=== PATIENT | male | born 1975 | race Caucasian/White ===

== ENCOUNTER 2018-05-06 20:11 | Emergency (ER) | payer BC ==
[2018-05-06 20:57] VITALS: BP 154/88
--- NOTE | 2018-05-06 20:57 | UC ---
UC General HPI - HPI Summary HPI Summary: pt has noted some pain and swelling to his L great toe for 2 days that is worsening. he now has some mild redness and swelling to the top of his foot as well. he was "planking" prior to onset but denies any acute injury. he has noted some decrease in ROM to that toe for some time and wonders if this is related. no fever or other joint pains. denies hx gout. self tx with occasional ibuprofen. - History of Current Complaint Stated Complaint: LEFT FOOT CONCERN Time Seen by Provider: 05/06/18 20:42 Hx Obtained From: Patient Onset/Duration: Gradual Onset Timing: Constant Associated Signs & Symptoms: Positive: Edema. Negative: Fever - Allergy/Home Medications Allergies/Adverse Reactions: Allergies Allergy/AdvReac Type Severity Reaction Status Date / Time No Known Allergies Allergy Verified 05/06/18 20:54 PMH/Surg Hx/FS Hx/Imm Hx Previously Healthy: Yes - Surgical History Surgical History: Yes Surgery Procedure, Year, and Place: Parotidectomy 2004 [facility]. Dermal Graft to neck 2008 [facility]. Right tear duct [facility] 2015 - Family History Known Family History: Positive: Hypertension - father - Social History Occupation: Employed Full-time Alcohol Use: Daily Alcohol Amount: 2 daily Substance Use Type: None Smoking Status (MU): Former Smoker Have You Smoked in the Last Year: No When Did the Patient Quit Smoking/Using Tobacco: 2007 - Immunization History Most Recent Influenza Vaccination: no Review of Systems All Other Systems Reviewed And Are Negative: Yes Constitutional: Positive: Negative Skin: Positive: Rash - L foot Eyes: Positive: Negative ENT: Positive: Negative Respiratory: Positive: Negative Cardiovascular: Positive: Negative Gastrointestinal: Positive: Negative Genitourinary: Positive: Negative Motor: Positive: Negative Neurovascular: Positive: Negative Musculoskeletal: Positive: Arthralgia - L great toe, Edema - L great toe into dorsal foot. Neurological: Positive: Negative Psychological: Positive: Negative Physical Exam Triage Information Reviewed: Yes Appearance: Well-Appearing Vital Signs Reviewed: Yes Eyes: Positive: Conjunctiva Clear ENT: Positive: Normal ENT inspection Neck: Positive: Supple Respiratory: Positive: No respiratory distress Cardiovascular: Positive: RRR Abdomen Description: Positive: Nontender Bowel Sounds: Positive: Present Musculoskeletal: Positive: Other: - LLE: base of great toe into dorsal foot with erythema, warmth and mild swelling. Base of toe tender to touch. Foot has gross s/v/m function. Rest of LLE is unremarkable. Diagnostics - Radiology No standard instances Radiology Interpretation Completed By: Radiologist - L foot=mild deg changes base great toe Course/Dx - Course Course Of Treatment: BP elevated here. no hx htn. may be both pain and visit related. will have recheck on f/u. will avoid any additional NSAID use at this time do to pt BP. will cover for cellulitis and gout using keflex and prednisone. - Differential Dx - Multi-Symptom Differential Diagnoses: Other - ARTHRITIS, GOUT, CELLULITIS. NO CONCERN FOR SEPTIC JOINT. - Diagnoses Provider Diagnosis: Gout, Cellulitis of left foot Discharge - Sign-Out/Discharge Documenting (check all that apply): Patient Departure All imaging exams completed and their final reports reviewed: No - Discharge Plan Condition: Stable Disposition: HOME Prescriptions: Cephalexin CAP* [Keflex CAP*] 500 mg PO TID 10 Days #30 cap predniSONE [Prednisone 20 MG TAB] 40 mg PO DAILY 3 Days #6 tablet Patient Education Materials: Cellulitis (ED), Gout (ED) Referrals: Steven Miguel MD [Primary Care Provider] - 3 Days Additional Instructions: STOP ALL MOTRIN/ALEVE/IBUPROFEN USE DUE TO ELEVATED BLOOD PRESSURE. FOLLOW UP WITH PRIMARY CARE IN 3 DAYS OR SOONER IF WORSE. - Billing Disposition and Condition Condition: STABLE Disposition: Home
[2018-05-06] MEDS ORDERED: Cephalexin CAP* 500 MG PO ONE (21:02)
[2018-05-06] MEDS ORDERED: predniSONE TAB* 20 MG PO ONE (21:02)
--- NOTE | 2018-05-07 22:01 | UC ---
- Progress Note Progress Note: Provider aware of left foot radiologist reading on 05/06/18 Course/Dx - Diagnoses Provider Diagnoses: Gout, Cellulitis of left foot Discharge - Sign-Out/Discharge Documenting (check all that apply): Patient Departure All imaging exams completed and their final reports reviewed: Yes - Discharge Plan Condition: Stable Disposition: HOME Prescriptions: Cephalexin CAP* [Keflex CAP*] 500 mg PO TID 10 Days #30 cap predniSONE [Prednisone 20 MG TAB] 40 mg PO DAILY 3 Days #6 tablet Patient Education Materials: Cellulitis (ED), Gout (ED) Referrals: Steven Miguel MD [Primary Care Provider] - 3 Days Additional Instructions: STOP ALL MOTRIN/ALEVE/IBUPROFEN USE DUE TO ELEVATED BLOOD PRESSURE. FOLLOW UP WITH PRIMARY CARE IN 3 DAYS OR SOONER IF WORSE. - Billing Disposition and Condition Condition: STABLE Disposition: Home
== END 2018-05-06 21:35 | disposition home or self-care (01) ==
LOC: UCCORT 20:11
DX: L03.116 Cellulitis of left lower limb (principal); M10.9 Gout, unspecified; Z87.891 Personal history of nicotine dependence
CPT/HCPCS: 99212; A9270-GY; G0463; J7512